=== PATIENT | female | born 1980 | race Caucasian/White ===

== ENCOUNTER → 2019-06-17 10:31 | Outpatient (BNVA) | payer MEDICAID, SELFPAY | PROVIDERS: Family Provider Family Medicine; PCP Family Medicine; Visit Provider Social Worker Clinical | DX: F43.12 Post-traumatic stress disorder, chronic (principal) | CPT/HCPCS: 90834 ==

== ENCOUNTER → 2019-08-17 10:47 | Outpatient (BNVA) | payer MEDICAID, SELFPAY | PROVIDERS: Family Provider Family Medicine; PCP Family Medicine; Visit Provider Social Worker Clinical | DX: F43.12 Post-traumatic stress disorder, chronic (principal) | CPT/HCPCS: 90834 ==

== ENCOUNTER → 2020-01-07 07:54 | Outpatient (BNVA) | payer MEDICARE, MEDICAID, SELFPAY | PROVIDERS: Family Provider Family Medicine; PCP Family Medicine; Visit Provider Social Worker Clinical | DX: F43.12 Post-traumatic stress disorder, chronic (principal) | CPT/HCPCS: 90834 ==

== ENCOUNTER 2020-01-15 10:31 | Emergency (ER) | payer MEDICARE, MEDICAID, SELFPAY ==
[2020-01-15 10:39] VITALS: BMI 20.1
[2020-01-15 10:44] VITALS: BP 158/113; PULSE 112; RESP 20; TEMP 37.2; O2SAT 97
--- NOTE | 2020-01-15 10:49 | W.ED.EXTPRO ---
HPI - Extremity Problem General: Chief complaint: Extremity Problem,Nontraumatic Stated complaint: swelling/redness multiple areas post fall Time Seen by Provider: 01/15/20 10:39 History of Present Illness: HPI Narrative: 39-year-old femal presents emergency room with complaint of pain to her feet bilaterally. She has sunburn meyer on the dorsum of her feet that are limited to the dorsum of the feet she has a little bit of swelling on the left foot she did evidently injured it previously and was in a walking boot and physical therapy for some time she states is being to hurt again although she does not recall any specific trauma that she had. Patient is tearful in the exam room. There is no drainage or obvious abscess. Skin is erythematous across the dorsum of the foot but does not extend posteriorly. It stops at the line of the malleoli. MD Complaint: extremity pain and extremity swelling Onset (ago): day(s) Pain Consistency: constant Location: left, right and lower extremity (Feet bilaterally) Quality: aching Radiation: none Relieving factors: nothing Exacerbating factors: nothing Associated symptoms: Reports no associated symptoms; Deny chest pain, fever(s) or rash Review of Systems Const: Denies: fever(s), chills, body aches, change in appetite, fatigue or malaise ENMT: Denies: throat pain, ear or mastoid pain, nasal discharge or nasal congestion Card: Denies: chest pain, edema, dyspnea on exertion or orthopnea Resp: Denies: dyspnea, productive cough or non-productive cough GI: Denies: abdominal pain, nausea, vomiting, hematemesis, coffee ground emesis, diarrhea, constipation, bloating, hematochezia or melena : Denies: flank pain, difficulty voiding, dysuria, urinary frequency or urinary urgency Skin/Breast: Denies: rash or pruritus PFSH ED PFSH: Medical History (Updated 01/15/20 @ 12:34 by Juni Kaur DO) Anxiety Depression Dystonia Fibromyalgia PTSD (post-traumatic stress disorder) Surgical History (Updated 01/15/20 @ 10:54 by Juni Kaur DO) History of cholecystectomy History of hysterectomy Physical Exam Const: COMMON NORMALS: average body habitus, patient oriented x3 and alert GENERAL APPEARANCE: cooperative, comfortable, well kempt and well developed NUTRITIONAL APPEARANCE: obese ORIENTATION/CONSCIOUSNESS: Yes awake, Yes oriented to person and Yes oriented to place HENMT: COMMON NORMALS: normocephalic and atraumatic HEAD & SCALP: normocephalic and atraumatic Eye: COMMON NORMALS: Equal, round and reactive pupils present, EOMs intact bilaterally, conjunctivae normal and no scleral icterus CONJUNCTIVA: Yes conjunctivae normal PUPIL: Yes Equal, round and reactive pupils present Neck/C-Spine: COMMON NORMALS: full ROM, no lymphadenopathy, supple, no meningeal signs and Thyroid normal THYROID: Thyroid normal and asymmetrical Lymph: LYMPHATIC: no lymphadenopathy noted Resp: COMMON NORMALS: normal respiratory effort, No retractions, No use of accessory muscles and clear to auscultation bilaterally AUSCULTATION: clear to auscultation bilaterally Cardio: COMMON NORMALS: regular rate and regular rhythm RATE: regular rate RHYTHM: regular rhythm HEART SOUNDS: no murmurs GI: COMMON NORMALS: Normal to inspection, nondistended, normoactive bowel sounds present, Soft to palpation and No hepatosplenomegaly present PALPATION: Yes Soft to palpation and Yes No hepatosplenomegaly present : COMMON NORMALS: Yes no CVA tenderness BLADDER/KIDNEY EXAM: Yes no CVA tenderness Back/Pelvis: COMMON NORMALS: no CVA tenderness LUMBAR SPINE/LOWER BACK: Yes normal to inspection Extremity: NARRATIVE EXTREMITY EXAM: Moderate swelling of the dorsum of the feet bilaterally right greater than left there is erythema noted in a pattern consistent with a sunburn where there are spared areas from sandal markings she was wearing. The erythema stops at the level of the malleoli bilaterally there is no spread posteriorly oral to the lateral portion of the foot there is no posterior popliteal or or inguinal lymphadenopathy noted. Dopar dorsalis pedis pulses and posterior tibialis pulse are palpable normally. There is no drainage no abscess. There is a slightly blanched area in the middle of the dorsum of the foot overlying the proximal portion of the third meta tarsal but there is no eschar present there is no palpable abscess. Neuro: COMMON NORMALS: patient oriented x3 SENSORIUM/ORIENTATION: Yes alert, Yes oriented to person and Yes oriented to place MENINGEAL SIGNS: Yes no meningeal signs Psych: APPEARANCE: Yes well kempt Skin: COMMON NORMALS: no rashes or lesions noted and turgor normal GENERAL SKIN EXAM: no rashes or lesions noted and turgor normal Course Vital Signs: Vital signs: Vital Signs Temperature 99.0 F 01/15/20 10:44 Pulse Rate 103 H 01/15/20 11:53 Respiratory Rate 18 01/15/20 11:53 Blood Pressure 129/94 01/15/20 11:53 Pulse Oximetry 99 01/15/20 11:53 MDM - Extremity (Nontraumatic) MDM Narrative: Medical decision making narrative: White count and CRP are normal x-rays does not show any acute fracture. No believe there is any cellulitis the erythema is limited to the exposed areas even the sandal straps are not erythematous although they are somewhat swollen was, generalized swelling on lower extremities particularly on the left. Observe for now. Elevate feet can apply ice use previously prescribed pain medications along with ibuprofen for relief. Follow-up with primary care doctor if not improving Lab Data: Labs: Lab Results 01/15/20 01/15/20 Range/Units 11:32 11:32 WBC 7.7 (4.0-10.0) 10^3/ uL RBC 3.73 L (4.1-5.3) 10^6/u L Hgb 11.9 (11.5-15.3) g/dL Hct 36.5 L (37.0-47.0) % MCV 97.9 (81-99) fL MCH 31.9 (28.0-34.0) pg MCHC 32.6 (30.0-36.0) g/dL RDW 13.1 (12.1-15.1) % Plt Count 267 (130-400) 10^3/c mm MPV 9.4 (7.4-10.4) fL Neut % (Auto) 64.4 % Lymph % (Auto) 27.7 % [place] % (Auto) 6.8 % Eos % (Auto) 0.4 % Baso % (Auto) 0.4 % Neut # (Auto) 4.96 (1.8-7.7) 10^3/u L Lymph # (Auto) 2.1 (0.8-4.8) 10^3/u L [place] # (Auto) 0.5 (0.2-0.9) 10^3/u L Eos # (Auto) 0.0 (0.0-0.8) 10^3/u L Baso # (Auto) 0.0 (0.0-0.1) 10^3/u L Nucleated RBC % (a uto) 0 % Nucleated RBCs # 0.0 /100WBC Sodium 140 (136-145) mmol/L Potassium 3.3 L (3.5-5.1) mmol/L Chloride 107 (98-107) mmol/L Carbon Dioxide 26 (22-29) mmol/L Anion Gap 10.3 (5-19) BUN 4 L (6-20) mg/dL Creatinine 0.6 (0.5-0.9) mg/dL GFR Calculation 110.7 (90-130) mL/min Glucose 72 (65-115) mg/dL Calculated Osmolal ity 284 L (285-295) mOsm/k g Calcium 8.3 L (8.5-10.5) mg/dL Total Bilirubin 0.2 (0.15-1.2) mg/dL AST 10 (0-32) U/L ALT < 5 (0-33) U/L Alkaline Phosphata se 57 (35-105) IU/L C-Reactive Protein 1.9 (0.0-4.9) mg/L Total Protein 6.7 (6.6-8.7) g/dL Albumin 3.9 (3.5-5.2) g/dL Globulin 2.8 (1.3-4.6) g/dL Discharge Plan Discharge Patient Disposition: Home Clinical Impression: First degree sunburn, Lower extremity edema Condition: Stable Prescriptions: No Action cyclobenzaprine 10 mg tablet 10 mg PO PRN PRN (Reason: muscle spasms) RF: 0 citalopram 40 mg tablet 40 mg PO DAILY RF: 0 ibuprofen 800 mg tablet 800 mg PO DAILY RF: 0 ondansetron HCl 4 mg tablet 4 mg PO DAILY RF: 0 tramadol 50 mg tablet 50 mg PO PRN PRN (Reason: Pain) RF: 0 oxycodone-acetaminophen 5-325 mg tablet 1 tab PO Q4H PRN (Reason: Pain) RF: 0 estradiol 1 mg tablet 1 mg PO DAILY RF: 0 omeprazole 20 mg capsule,delayed release(DR/EC) 20 mg PO DAILY RF: 0 morphine 15 mg tablet extended release 15 mg PO DAILY RF: 0 diazepam 5 mg tablet 5 mg PO TID RF: 0 Discharge Orders: Discharge Order (Routine); Ordered 01/15/20 Ordered By: Juni Kaur Referrals: Divya Newton, [Primary Care Provider] - Discharge Diet: Usual diet Discharge Activity: Increase activity as tolerated Activity Restrictions/Additional Instructions: Elevate can apply ice use previously prescribed pain medications along with ibuprofen follow-up with primary care if not improving Coding Level of Care Code ED Potato [employer] Maker for Edwinag Fwd Exam Comprehensive
--- NOTE | 2020-01-15 10:55 | XRR_ITS ---
PROCEDURE INFORMATION: Exam: XR Left Ankle Exam date and time: 01/15/2020 10:57 AM Age: 39 years old Clinical indication: Pain; Ankle; Left; Additional info: Pain with swallowing TECHNIQUE: Imaging protocol: XR Left ankle. Views: 3 or more views. COMPARISON: No relevant prior studies available. FINDINGS: Bones/joints: No acute fracture. No dislocation. Soft tissues: Minimal soft tissue edema noted about the ankle, left slightly greater than right. XR/XR ankle LT min 3V* [id number] IMPRESSION: No acute fracture. Minimal soft tissue edema noted about the ankle, left slightly greater than right.
[2020-01-15 11:50] LABS: Basophils % 0.4 %; Eosinophils % 0.4 %; Hematocrit 36.5 % (37.0-47.0); Hemoglobin 11.9 g/dL (11.5-15.3); Lymphocytes # 2.1 10^3/uL (0.8-4.8); Lymphocytes % 27.7 %; Mean Corpuscular HGB Conc 32.6 g/dL (30.0-36.0); Mean Corpuscular Hemoglobin 31.9 pg (28.0-34.0); Mean Corpuscular Volume 97.9 fL (81-99); Mean Platelet Volume 9.4 fL (7.4-10.4); Monocytes # 0.5 10^3/uL (0.2-0.9); Monocytes % 6.8 %; Neutrophils # 4.96 10^3/uL (1.8-7.7); Neutrophils % 64.4 %; Nucleated Red Blood Cells % 0 %; Platelet Count 267 10^3/cmm (130-400); Red Blood Count 3.73 10^6/uL (4.1-5.3); Red Cell Distribution Width 13.1 % (12.1-15.1); White Blood Count 7.7 10^3/uL (4.0-10.0)
[2020-01-15] MEDS: HYDROcodone-acetaminophen 5-325 mg Tablet 1 TAB PO (11:52)
[2020-01-15 11:53] VITALS: BP 129/94; PULSE 103; RESP 18; O2SAT 99
[2020-01-15 12:11] LABS: Alanine Aminotransferase < 5 U/L (0-33); Albumin Level 3.9 g/dL (3.5-5.2); Alkaline Phosphatase 57 IU/L (35-105); Anion Gap 10.3 (5-19); Aspartate Amino Transferase 10 U/L (0-32); Blood Urea Nitrogen 4 mg/dL (6-20); C Reactive Protein 1.9 mg/L (0.0-4.9); Calcium 8.3 mg/dL (8.5-10.5); Carbon Dioxide 26 mmol/L (22-29); Chloride 107 mmol/L (98-107); Globulin 2.8 g/dL (1.3-4.6); Glomerular Filtration Rate 110.7 mL/min (90-130); Glucose 72 mg/dL (65-115); Osmolality Calculated 284 mOsm/kg (285-295); Potassium 3.3 mmol/L (3.5-5.1); Sodium 140 mmol/L (136-145); Total Bilirubin 0.2 mg/dL (0.15-1.2); Total Protein 6.7 g/dL (6.6-8.7)
[2020-01-15] MEDS: potassium chloride oral liq 20 mEq/15 mL UDC 40 MEQ PO (12:38)
[2020-01-15 12:39] LABS: Erythrocyte Sedimentation Rate 13 mm/hr (0-15)
[2020-01-15 12:40] VITALS: BP 103/68; PULSE 85; RESP 16; O2SAT 100
== END 2020-01-15 12:46 | disposition home or self-care (01) ==
PROVIDERS: Emergency Provider Family Medicine; PCP Family Medicine
DX: L55.0 Sunburn of first degree (principal); R60.0 Localized edema
CPT/HCPCS: 12345; 36415; 73610; 80053; 85025; 85651; 86140; 87040; 99281; 99283

== ENCOUNTER → 2020-01-19 09:40 | Outpatient (BNVA) | payer MEDICARE, MEDICAID, SELFPAY | PROVIDERS: Family Provider Family Medicine; PCP Family Medicine; Visit Provider Social Worker Clinical | DX: F43.12 Post-traumatic stress disorder, chronic (principal) | CPT/HCPCS: 90834 ==

== ENCOUNTER → 2020-02-03 08:47 | Outpatient (BNVA) | payer MEDICARE, MEDICAID, SELFPAY | PROVIDERS: Family Provider Family Medicine; PCP Family Medicine; Visit Provider Social Worker Clinical | DX: F43.12 Post-traumatic stress disorder, chronic (principal) | CPT/HCPCS: 90834 ==

== ENCOUNTER → 2020-02-08 08:42 | Outpatient (BNVA) | payer MEDICARE, MEDICAID, SELFPAY | PROVIDERS: Family Provider Family Medicine; PCP Family Medicine; Visit Provider Social Worker Clinical | DX: F43.12 Post-traumatic stress disorder, chronic (principal) | CPT/HCPCS: 90834 ==

== ENCOUNTER → 2020-02-28 09:29 | Outpatient (BNVA) | payer MEDICARE, MEDICAID, SELFPAY | PROVIDERS: Family Provider Family Medicine; PCP Family Medicine; Visit Provider Social Worker Clinical | DX: F43.12 Post-traumatic stress disorder, chronic (principal) | CPT/HCPCS: 90834 ==

== ENCOUNTER 2020-11-24 14:49 | Inpatient (IN) | payer MEDICARE, MEDICAID, SELFPAY ==
[2020-11-24 15:05] VITALS: BP 152/84; PULSE 110; RESP 18; O2SAT 95; BMI 15.1
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
[2020-11-24 17:27] LABS: Basophils # 0.1 10^3/uL (0.0-0.1); Basophils % 0.7 %; Eosinophils # 0.1 10^3/uL (0.0-0.8); Eosinophils % 1.5 %; Hematocrit 36.3 % (37.0-47.0); Hemoglobin 11.8 g/dL (11.5-15.3); Lymphocytes # 2.3 10^3/uL (0.8-4.8); Lymphocytes % 33.5 %; Mean Corpuscular HGB Conc 32.5 g/dL (30.0-36.0); Mean Corpuscular Hemoglobin 31.6 pg (28.0-34.0); Mean Corpuscular Volume 97.1 fL (81-99); Mean Platelet Volume 9.6 fL (7.4-10.4); Monocytes # 0.5 10^3/uL (0.2-0.9); Neutrophils # 3.79 10^3/uL (1.8-7.7); Nucleated Red Blood Cells % 0 %; Platelet Count 259 10^3/cmm (130-400); Red Blood Count 3.74 10^6/uL (4.1-5.3); Red Cell Distribution Width 12.3 % (12.1-15.1); White Blood Count 6.8 10^3/uL (4.0-10.0)
[2020-11-24 17:51] LABS: Alanine Aminotransferase 11 U/L (0-33); Albumin Level 3.8 g/dL (3.5-5.2); Alkaline Phosphatase 52 IU/L (35-105); Anion Gap 13.8 (5-19); Aspartate Amino Transferase 16 U/L (0-32); Blood Urea Nitrogen 8 mg/dL (6-20); Calcium 8.8 mg/dL (8.5-10.5); Carbon Dioxide 30 mmol/L (22-29); Chloride 98 mmol/L (98-107); Globulin 2.3 g/dL (1.3-4.6); Glomerular Filtration Rate 92.2 mL/min (90-130); Glucose 81 mg/dL (65-115); Osmolality Calculated 285 mOsm/kg (285-295); Salicylate 2.9 mg/dL (3-10); Sodium 139 mmol/L (136-145); Total Bilirubin 0.3 mg/dL (0.15-1.2); Total Protein 6.1 g/dL (6.6-8.7)
[2020-11-24 17:53] LABS: Potassium 2.8 mmol/L (3.5-5.1)
[2020-11-24 17:54] LABS: Acetaminophen < 5.0 ug/mL (10-30); Alcohol Level < 10 mg/dL (0-10)
[2020-11-24 17:55] LABS: Glucose Urine UA Norm (Normal); HCG Qualitative Urine. Negative (Negative); Protein Urine 1+ (Negative); Specific Gravity, Urine 1.025 (1.005-1.030); Urine Appearance Cloudy (CLEAR); Urine Color Yellow (Yellow); pH Urine 7 (5-7)
[2020-11-24 17:56] LABS: Add Urine Microscopic? YES; Bilirubin Urine 1+ (Negative); Blood Urine Neg (Negative); Ketones Urine Negative (Negative); Leukocyte Esterase Urine Trace (Negative); Nitrate Urine Positive (Negative); Urobilinogen Urine 1 mg/dL (Negative)
[2020-11-24 18:06] LABS: Bacteria Urine 4+ /hpf; Squamous Epithelial Cell Urine 0-4 /hpf (0-5); WBC Urine 0-4 /hpf (0-5)
[2020-11-24 18:07] LABS: Add Urine Culture? No
[2020-11-24 18:10] LABS: Amphetamines Screen Urine Positive (Negative); Barbiturates Screen Urine Negative (Negative); Benzodiazepines Screen Urine Positive (Negative); Cocaine Screen Urine Negative (Negative); Opiate Screen Urine Negative (Negative); PCP Screen Urine Negative (Negative); THC Screen Urine Negative (Negative)
[2020-11-24] MEDS: nitrofurantoin SR (BID) 100 mg Capsule PO (18:14)
[2020-11-24] MEDS: potassium chloride oral liq 20 mEq/15 mL UDC 40 MEQ PO (18:14)
[2020-11-24] MEDS: LORazepam 1 mg Tablet PO (18:14)
[2020-11-24 18:17] VITALS: BP 121/75; PULSE 89; RESP 18; O2SAT 97
--- NOTE | 2020-11-24 19:37 | PC.NURSE ---
patient is resting, no acute distress noted.
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
[2020-11-24 22:00] VITALS: BP 121/75; PULSE 89; RESP 18; TEMP 37; O2SAT 98
[2020-11-25 06:00] VITALS: BP 107/74; PULSE 73; RESP 17; TEMP 36.6; O2SAT 97
[2020-11-25 08:04] LABS: Eosinophils # 0.1 10^3/uL (0.0-0.8); Eosinophils % 2.7 %; Hematocrit 35.7 % (37.0-47.0); Hemoglobin 11.5 g/dL (11.5-15.3); Lymphocytes % 48.2 %; Mean Corpuscular HGB Conc 32.2 g/dL (30.0-36.0); Mean Corpuscular Hemoglobin 31.1 pg (28.0-34.0); Mean Corpuscular Volume 96.5 fL (81-99); Mean Platelet Volume 9.9 fL (7.4-10.4); Monocytes # 0.4 10^3/uL (0.2-0.9); Monocytes % 10.3 %; Neutrophils # 1.54 10^3/uL (1.8-7.7); Neutrophils % 37.8 %; Nucleated Red Blood Cells % 0 %; Platelet Count 245 10^3/cmm (130-400); Red Cell Distribution Width 12.4 % (12.1-15.1); White Blood Count 4.1 10^3/uL (4.0-10.0)
[2020-11-25 08:23] LABS: Alanine Aminotransferase 10 U/L (0-33); Albumin Level 3.5 g/dL (3.5-5.2); Alkaline Phosphatase 49 IU/L (35-105); Anion Gap 12.4 (5-19); Aspartate Amino Transferase 14 U/L (0-32); Blood Urea Nitrogen 10 mg/dL (6-20); Carbon Dioxide 30 mmol/L (22-29); Chloride 105 mmol/L (98-107); Glomerular Filtration Rate 92.2 mL/min (90-130); Glucose 87 mg/dL (65-115); Osmolality Calculated 296 mOsm/kg (285-295); Potassium 3.4 mmol/L (3.5-5.1); Sodium 144 mmol/L (136-145); Total Bilirubin 0.4 mg/dL (0.15-1.2); Total Protein 5.5 g/dL (6.6-8.7)
[2020-11-25] MEDS: diazePAM 5 mg Tablet PO ×4 (10:00→20:53)
[2020-11-25] MEDS: nitrofurantoin SR (BID) 100 mg Capsule PO ×2 (10:00→18:36)
[2020-11-25] MEDS: citalopram 20 mg Tablet 40 MG PO (10:00)
[2020-11-25] MEDS: estradiol 1 mg Tablet 1.5 MG PO (10:01)
[2020-11-25] MEDS: pantoprazole DR 40 mg Tablet PO (10:01)
[2020-11-25] MEDS: potassium chloride oral liq 20 mEq/15 mL UDC 40 MEQ PO ×2 (10:02→18:36)
[2020-11-25 10:13] VITALS: RESP 18; O2SAT 97
[2020-11-25] MEDS: oxyCODONE-APAP 5-325 mg Tablet 1 TAB PO (10:13)
[2020-11-25 11:42] VITALS: BMI 15.1
[2020-11-25] MEDS: OLANZapine 5 mg ODT PO ×2 (12:51→18:35)
[2020-11-25] MEDS: nicotine 21 mg Patch 1 PATCH TRANSDERMA (12:51)
[2020-11-25 14:00] VITALS: BP 107/74; PULSE 73; RESP 18; TEMP 36.6; O2SAT 97
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
--- NOTE | 2020-11-25 19:06 | PC.NURSE ---
late entry prn 1013 administered oxycodone 5mg/325mg for pt c/o pain 01/16. will continue to monitor pt until end of shift.
[2020-11-25 22:00] VITALS: BP 106/72; PULSE 70; RESP 16; TEMP 36.8; O2SAT 96
--- NOTE | 2020-11-26 02:41 | PC.NURSE ---
MEDICAL BED? PT HAS STATED, MY BODY ACHES, I HAVE A GENETIC CONDITION AND FIBROMYALGIA. AT TIMES, I CAN NOT GET UP OUT OF BED ON MY OWN, IT HURTS TO WALK, AND SOMETIMES I FALL. PT HAS A FALL MAT IN PLACE, FALL RISK UPDATED, FALL BRACELET ON PT. PT MAY BENEFIT FROM MOVEMENT INTO A MEDICAL BED NEAR NURSES STATION.
[2020-11-26 06:00] VITALS: BP 110/62; PULSE 77; RESP 16; TEMP 36.7; O2SAT 99; BMI 15.1
[2020-11-26] MEDS: acetaminophen 325 mg Tablet 650 MG PO (06:11)
[2020-11-26] MEDS: estradiol 1 mg Tablet 1.5 MG PO (08:38)
[2020-11-26] MEDS: pantoprazole DR 40 mg Tablet PO (08:39)
[2020-11-26] MEDS: diazePAM 5 mg Tablet PO ×4 (08:39→20:36)
[2020-11-26] MEDS: citalopram 20 mg Tablet 40 MG PO (08:39)
[2020-11-26] MEDS: nitrofurantoin SR (BID) 100 mg Capsule PO ×2 (08:39→20:36)
[2020-11-26 13:56] VITALS: BP 97/67; PULSE 101; RESP 16; TEMP 36.9; O2SAT 97
--- NOTE | 2020-11-26 15:08 | PM.NPN ---
Subjective NPU Subjective: Interval history: Reina presented today seeming to realize that she is having perceptual disturbances. She reports hearing knocking on doors and windows here in the hospital. We discussed the risks benefits and alternatives of starting abilify for her psychosis and she understood and agreed to proceed as is documented in this note. Mental Status Exam MSE Comments: This is an underweight white female in hospital scrubs with appropriate grooming and adequate eye contact. No abnormal movements except for psychomotor retardation. Cooperative with exam in mild to moderate distress. Speech was decreased rate and volume. Mood described as not good, affect congruent. Thought process organized. Thought content: Patient denied suicidal or homicidal ideation, there were no delusions reported but some paranoia existed, she endorsed hearing sounds that are starting to drive me crazy. . Attention and concentration were intact and memory was mostly reliable but none were formally tested. She is alert and oriented x3. Insight and judgment are improving. And impulse control is impaired. Vitals/I&O/Wt Last Vital Signs Temp 98.4 F 11/26/20 13:56 Pulse 101 H 11/26/20 13:56 Resp 16 11/26/20 13:56 BP 97/67 11/26/20 13:56 Pulse Ox 97 11/26/20 13:56 Weight last 48 hrs Weight 37.648 kg Weight 37.648 kg Data NPU : 11/25/20 07:02 11/25/20 07:02 A&P Additional A&P Information (1) Acute psychosis: (2) Drug-induced psychotic disorder: (3) Cannabis abuse: (4) Methamphetamine abuse: (5) PTSD (post-traumatic stress disorder): Additional A&P Information This is a 40-year-old white female with a long history of trauma and recent active addiction with possible ultimate status secondary to use who presents feeling distressed about being stalked by her but is unclear that that is actually occurring. 1. Continue current medication. Start abilify 10 mg po qam. 2. Continue every 15 minute checks for safety. 3. Encourage individual, group and milieu therapies. 4. Encourage sober living treatment after discharge at the highest level of care to which he is willing to commit. Involuntary Hold Information 96 Hour Hold: 96 Hour Involuntary Admission: No Attestations NPU Medical Necessity Statement*: Inpatient hospitalization is medically necessary and the clinically appropriate intervention at this time. We will monitor medications and make changes as indicated. Likely length of stay 2-4 days. Coding Level of Care Code Acute Jd Edwards Consultant for Elyssa Charles
[2020-11-26] MEDS: ARIPiprazole 10 mg Tablet PO (15:50)
[2020-11-26 20:59] VITALS: BP 115/70; PULSE 98; RESP 19; TEMP 36.8; O2SAT 99
[2020-11-27 06:00] VITALS: BP 113/79; PULSE 81; RESP 17; TEMP 36.9; O2SAT 98
[2020-11-27] MEDS: ARIPiprazole 10 mg Tablet PO (08:38)
[2020-11-27] MEDS: citalopram 20 mg Tablet 40 MG PO (08:38)
[2020-11-27] MEDS: diazePAM 5 mg Tablet PO ×4 (08:39→20:47)
[2020-11-27] MEDS: nitrofurantoin SR (BID) 100 mg Capsule PO ×2 (08:39→20:47)
[2020-11-27] MEDS: pantoprazole DR 40 mg Tablet PO (08:39)
[2020-11-27] MEDS: estradiol 1 mg Tablet 1.5 MG PO (08:40)
[2020-11-27 09:14] VITALS: RESP 17; O2SAT 96
[2020-11-27] MEDS: oxyCODONE-APAP 5-325 mg Tablet 1 TAB PO ×2 (09:14→16:22)
[2020-11-27 14:00] VITALS: BP 95/63; PULSE 88; RESP 14; TEMP 36.9; O2SAT 98
[2020-11-27 16:22] VITALS: RESP 17
--- NOTE | 2020-11-27 16:32 | PM.NPN ---
Subjective NPU Subjective: Interval history: Reina presents today reporting that she is finally starting to see a light in the time. She had a couple visitors who also said it was starting to see a little improvement. She feels like the medication is helping diminish the perceptual disturbances that she has been reporting. She is more open to speak about possible impact of her drug use. Otherwise she reports she is a bit tired but is unclear if this related to medication or the events in the last few days. Mental Status Exam MSE Comments: This is an underweight white female in hospital scrubs with appropriate grooming and adequate eye contact. No abnormal movements except for psychomotor retardation. Cooperative with exam in no acute distress. Speech was decreased rate and volume. Mood described as a little better, affect congruent. Thought process organized. Thought content: Patient denied suicidal or homicidal ideation, there were no delusions reported and resolving paranoia, she endorsed the sound she had been hearing are diminishing. Attention and concentration were intact and memory was mostly reliable but none were formally tested. She is alert and oriented x3. Insight and judgment are improving. And impulse control is limited, but improving. Vitals/I&O/Wt Last Vital Signs Temp 98.4 F 11/27/20 14:00 Pulse 88 11/27/20 14:00 Resp 18 11/27/20 14:00 BP 95/63 11/27/20 14:00 Pulse Ox 98 11/27/20 14:00 Data NPU : 11/25/20 07:02 11/25/20 07:02 A&P Additional A&P Information (1) Acute psychosis: (2) Drug-induced psychotic disorder: (3) Cannabis abuse: (4) Methamphetamine abuse: (5) PTSD (post-traumatic stress disorder): Additional A&P Information This is a 40-year-old white female with a long history of trauma and recent active addiction with possible ultimate status secondary to use who presents feeling distressed about being stalked by her but is unclear that that is actually occurring. 1. Continue current medication. 2. Continue every 15 minute checks for safety. 3. Encourage individual, group and milieu therapies. 4. Encourage sober living treatment after discharge at the highest level of care to which he is willing to commit. Involuntary Hold Information 96 Hour Hold: 96 Hour Involuntary Admission: No Attestations NPU Medical Necessity Statement*: Inpatient hospitalization is medically necessary and the clinically appropriate intervention at this time. We will monitor medications and make changes as indicated. Likely length of stay 1-3 days. Coding Level of Care Code Acute Customer Resolution Specialist for Elyssa Charles
[2020-11-27 20:12] VITALS: BP 96/66; PULSE 83; RESP 15; TEMP 36.6; O2SAT 97
--- NOTE | 2020-11-27 20:15 | PC.NURSE ---
REFUSED SHOWER PT OFFERED SHOWER ON CSU WITH AID, PT REFUSED. ROLLED OVER, WENT TO SLEEP
[2020-11-28 06:00] VITALS: BP 87/61; PULSE 88; RESP 14; TEMP 35.9; O2SAT 97
[2020-11-28] MEDS: nitrofurantoin SR (BID) 100 mg Capsule PO ×2 (06:39→21:41)
[2020-11-28 08:10] VITALS: RESP 17
[2020-11-28] MEDS: ARIPiprazole 10 mg Tablet PO (08:10)
[2020-11-28] MEDS: diazePAM 5 mg Tablet PO ×4 (08:10→21:41)
[2020-11-28] MEDS: pantoprazole DR 40 mg Tablet PO (08:10)
[2020-11-28] MEDS: oxyCODONE-APAP 5-325 mg Tablet 1 TAB PO ×3 (08:10→19:35)
[2020-11-28] MEDS: citalopram 20 mg Tablet 40 MG PO (08:11)
[2020-11-28] MEDS: estradiol 1 mg Tablet 1.5 MG PO (08:11)
--- NOTE | 2020-11-28 08:58 | DCPLANNER ---
IMM not completed due to pt in NPU
--- NOTE | 2020-11-28 09:11 | PC.NURSE ---
off the floor to shower on CSU, accompanied by nurse residents
--- NOTE | 2020-11-28 09:18 | PC.NUTR ---
Addendum entered by Anders Hull 11/28/20 09:24: chocolate Ensure Plus Original Note: Nutrition reassessment: Clarified supplement provision as pt states she has not received it yet. Pt to receive Ensure with lunch. Dietary staff aware. See RD assessment for further details.
[2020-11-28 13:44] VITALS: RESP 17
[2020-11-28 14:00] VITALS: BP 106/68; PULSE 87; RESP 14; TEMP 36.7; O2SAT 97
--- NOTE | 2020-11-28 15:06 | PM.NPN ---
Subjective NPU Subjective: Interval history: Reina presents today continue to have slow progress and showing more clarity of thought but still have some psychomotor retardation. Family visited and we are agreeable to discharge tomorrow they are trying to get some kind of inpatient addiction treatment in place but we discussed the fact that that is often a time challenging situation and so they are working on what they are going to do to support her in the meantime. We agreed to a plan for discharge in the morning. Mental Status Exam MSE Comments: This is an underweight white female in hospital scrubs with appropriate grooming and adequate eye contact. No abnormal movements except for psychomotor retardation. Cooperative with exam in no acute distress. Speech was decreased rate and volume. Mood described as a little better, affect congruent. Thought process organized. Thought content: Patient denied suicidal or homicidal ideation, there were no delusions reported and resolving paranoia, she endorsed the sound she had been hearing are diminishing. Attention and concentration were intact and memory was mostly reliable but none were formally tested. She is alert and oriented x3. Insight and judgment are improving. And impulse control is limited, but improving. Vitals/I&O/Wt Last Vital Signs Temp 98.0 F 11/28/20 14:00 Pulse 87 11/28/20 14:00 Resp 14 11/28/20 14:00 BP 106/68 11/28/20 14:00 Pulse Ox 97 11/28/20 14:00 Data NPU : 11/25/20 07:02 11/25/20 07:02 A&P Additional A&P Information (1) Acute psychosis: (2) Drug-induced psychotic disorder: (3) Cannabis abuse: (4) Methamphetamine abuse: (5) PTSD (post-traumatic stress disorder): Additional A&P Information This is a 40-year-old white female with a long history of trauma and recent active addiction with possible ultimate status secondary to use who presents feeling distressed about being stalked by her but is unclear that that is actually occurring. 1. Continue current medication. 2. Continue every 15 minute checks for safety. 3. Encourage individual, group and milieu therapies. 4. Encourage sober living treatment after discharge at the highest level of care to which he is willing to commit. Involuntary Hold Information 96 Hour Hold: 96 Hour Involuntary Admission: No Attestations NPU Medical Necessity Statement*: Inpatient hospitalization is medically necessary and the clinically appropriate intervention at this time. We will monitor medications and make changes as indicated. Likely discharge in the morning.. Coding Level of Care Code Acute Golf Course Equipment Operator for Elyssa Charles
[2020-11-28 19:35] VITALS: RESP 16; O2SAT 97
--- NOTE | 2020-11-28 19:35 | PC.NURSE ---
pt requested pain med for all over body pain. Oxycodone-Acetaminophen 5/325 po given.
[2020-11-28 21:13] VITALS: BP 117/81; PULSE 107; RESP 24; TEMP 36.8; O2SAT 97
--- NOTE | 2020-11-28 21:45 | PC.NURSE ---
pt is resting quietly with both eyes closed.
[2020-11-29 06:00] VITALS: BP 103/71; PULSE 75; RESP 18; TEMP 36.8; O2SAT 99
[2020-11-29] MEDS: nitrofurantoin SR (BID) 100 mg Capsule PO (06:38)
[2020-11-29 09:44] VITALS: RESP 16; O2SAT 98
[2020-11-29] MEDS: oxyCODONE-APAP 5-325 mg Tablet 1 TAB PO (09:44)
[2020-11-29] MEDS: ARIPiprazole 10 mg Tablet PO (09:45)
[2020-11-29] MEDS: pantoprazole DR 40 mg Tablet PO (09:45)
[2020-11-29] MEDS: citalopram 20 mg Tablet 40 MG PO (09:45)
[2020-11-29] MEDS: estradiol 1 mg Tablet 1.5 MG PO (09:45)
--- NOTE | 2020-11-29 10:26 | PC.NURSE ---
PRN 0944 administered Oxycodone 5/325 mg for pain 01/16. Will continue to monitor pt.
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
[2020-11-29 12:41] VITALS: BP 102/70; PULSE 71; RESP 16; TEMP 36.6; O2SAT 98
== END 2020-11-29 14:11 | disposition home or self-care (01) | DRG 897 ==
LOC: ER 18:14 → NP 18:50
PROVIDERS: Admitting Provider Psychiatry & Neurology Psychiatry; Emergency Provider Family Medicine; PCP Family Medicine; Visit Provider Psychiatry & Neurology Psychiatry
DX: F15.250 Other stimulant dependence with stimulant-induced psychotic disorder with delusions (principal); N39.0 Urinary tract infection, site not specified; F41.9 Anxiety disorder, unspecified; F32.9 Major depressive disorder, single episode, unspecified; G24.9 Dystonia, unspecified; M79.7 Fibromyalgia; E87.6 Hypokalemia; F17.210 Nicotine dependence, cigarettes, uncomplicated; F12.10 Cannabis abuse, uncomplicated; Z91.410 Personal history of adult physical and sexual abuse; Z91.14 Patient's other noncompliance with medication regimen
CPT/HCPCS: 36415; 80048; 80053; 80306; 80307; 81001; 81025; 85025; 97161; 97530; 99285; J8499

== ENCOUNTER 2021-02-19 11:51 | Inpatient (IN) | payer MEDICARE, MEDICAID, SELFPAY ==
[2021-02-19 12:03] VITALS: BP 126/86; PULSE 117; RESP 16; TEMP 36.8; O2SAT 99; BMI 17.4
--- NOTE | 2021-02-19 12:36 | W.ED.GENADLT ---
HPI - General Adult General: Chief complaint: Psychiatric Symptoms Stated complaint: Hallucinations and hearing things Time Seen by Provider: 02/19/21 12:15 History of Present Illness: HPI narrative: HPI: [40]yo patient w/ hx of depression and psychosis BIBA for acutely hearing voices and cutting her R wrist yesterday night. for On arrival, the patient is AAOx3 and cooperative with my evaluation. No focal complaints of chest pain, shortness of breath, palpitations, N/V, focal GI/ complaints. +endorses visual hallucinations and SI currently. Onset: chronic, acutely x 1 day Duration: ongoing Location: home Severity: severe Review of Systems Narrative: Constitutional: No fever, no chills. HEENT: No vision changes CV: No chest pain, no palpitations PULM: No productive cough, no dyspnea. GI: No abdominal pain, no N/V/D. : No dysuria MSKEL: No muscle pain SKIN: +R arm/wrist abrasions NEURO: No headache, no focal weakness. HEME: No visible bruises PSYCH: +psychosis, + depression PFSH ED PFSH: Medical History Anxiety Depression Dystonia Fibromyalgia PTSD (post-traumatic stress disorder) Surgical History History of cholecystectomy History of hysterectomy Physical Exam Narrative: EXAM NARRATIVE: Head: Atraumatic Eyes: PERRL, conjunctiva without injection, eyes tracking ENT: Mucous membrane moist NECK: Supple without lymphadenopathy LUNGS: LCTAB CV: RRR ABDOMEN: Soft, nontender EXTREMITY: Normal ROM, +R wrist abrasions, neurovascular exam of the RUE intact SKIN: +R wrist abrasion NEURO: Awake and alert. No focal weakness PSYCH: +flat affect Course Vital Signs: Vital signs: Vital Signs Temperature 98.3 F 02/20/21 06:00 Pulse Rate 83 02/20/21 06:00 Respiratory Rate 18 02/20/21 06:00 Blood Pressure 101/68 02/20/21 06:00 Pulse Oximetry 97 02/20/21 06:00 MDM - General Adult MDM Narrative: Medical decision making narrative: [40]yo patient w/ hx of suicidal ideations and psychosis presenting for acute visual hallucinations, hearing voices, and cutting her wrist. HDS, exam within normal limit. Wrist abrasion does not need suture repair. Clinically the patient displays no overt toxidrome; they are well appearing, with low suspicion for toxic ingestion given history and exam. Symptoms unlikely 2/2 anemia, hypothyroidism, infection, or ICH. Workup: CBC, CMP, Lipase, salicylate/tylenol Lab findings: wnl [1:34pm] On reassessment, labs and workup wnl. Patient is hemodynamically stable with no acute medical complaints. Case discussed with psychiatric provider Dr. Melchor at [facility] psych inpatient with recommendation for admission Disposition: Psych Lab Data: Labs: Lab Results 02/19/21 02/19/21 02/19/21 Range/Units 12:56 12:56 12:56 WBC 8.4 (4.0-10.0) 10^3/ uL RBC 4.07 L (4.1-5.3) 10^6/u L Hgb 12.6 (11.5-15.3) g/dL Hct 37.7 (37.0-47.0) % MCV 92.6 (81-99) fl MCH 31.0 (28.0-34.0) pg MCHC 33.4 (30.0-36.0) g/dL RDW 11.9 L (12.1-15.1) % Plt Count 295 (130-400) 10^3/c mm MPV 9.1 (7.4-10.4) fL Neut % (Auto) 66.5 % Lymph % (Auto) 24.3 % [place] % (Auto) 6.0 % Eos % (Auto) 2.3 % Baso % (Auto) 0.8 % Neut # (Auto) 5.59 (1.8-7.7) 10^3/u L Lymph # (Auto) 2.0 (0.8-4.8) 10^3/u L [place] # (Auto) 0.5 (0.2-0.9) 10^3/u L Eos # (Auto) 0.2 (0.0-0.8) 10^3/u L Baso # (Auto) 0.1 (0.0-0.1) 10^3/u L Nucleated RBC % (a uto) 0 % Nucleated RBCs # 0.0 /100WBC Sodium 137 (136-145) mmol/L Potassium 3.9 (3.5-5.1) mmol/L Chloride 97 L (98-107) mmol/L Carbon Dioxide 28 (22-29) mmol/L Anion Gap 15.9 (5-19) BUN 7 (6-20) mg/dL Creatinine 0.7 (0.5-0.9) mg/dL GFR Calculation 92.2 (90-130) mL/min Glucose 51 L (65-115) mg/dL Calculated Osmolal ity 279 L (285-295) mOsm/k g Calcium 9.3 (8.5-10.5) mg/dL Urine HCG, Qual Negative (Negative) Salicylates < 0.3 L (3-10) mg/dL Urine Opiates Scre en (Negative) ng/mL Acetaminophen < 5.0 L (10-30) ug/mL Ur Barbiturates Sc reen (Negative) ng/mL Ur Phencyclidine S crn (Negative) ng/mL Ur Amphetamines Sc reen (Negative) ng/mL U Benzodiazepines Scrn (Negative) ng/mL Urine Cocaine Scre en (Negative) ng/mL U Marijuana (THC) Screen (Negative) ng/mL 02/19/21 Range/Units 13:09 WBC (4.0-10.0) 10^3/ uL RBC (4.1-5.3) 10^6/u L Hgb (11.5-15.3) g/dL Hct (37.0-47.0) % MCV (81-99) fl MCH (28.0-34.0) pg MCHC (30.0-36.0) g/dL RDW (12.1-15.1) % Plt Count (130-400) 10^3/c mm MPV (7.4-10.4) fL Neut % (Auto) % Lymph % (Auto) % [place] % (Auto) % Eos % (Auto) % Baso % (Auto) % Neut # (Auto) (1.8-7.7) 10^3/u L Lymph # (Auto) (0.8-4.8) 10^3/u L [place] # (Auto) (0.2-0.9) 10^3/u L Eos # (Auto) (0.0-0.8) 10^3/u L Baso # (Auto) (0.0-0.1) 10^3/u L Nucleated RBC % (a uto) % Nucleated RBCs # /100WBC Sodium (136-145) mmol/L Potassium (3.5-5.1) mmol/L Chloride (98-107) mmol/L Carbon Dioxide (22-29) mmol/L Anion Gap (5-19) BUN (6-20) mg/dL Creatinine (0.5-0.9) mg/dL GFR Calculation (90-130) mL/min Glucose (65-115) mg/dL Calculated Osmolal ity (285-295) mOsm/k g Calcium (8.5-10.5) mg/dL Urine HCG, Qual (Negative) Salicylates (3-10) mg/dL Urine Opiates Scre en Negative (Negative) ng/mL Acetaminophen (10-30) ug/mL Ur Barbiturates Sc reen Negative (Negative) ng/mL Ur Phencyclidine S crn Negative (Negative) ng/mL Ur Amphetamines Sc reen Positive H (Negative) ng/mL U Benzodiazepines Scrn Positive H (Negative) ng/mL Urine Cocaine Scre en Negative (Negative) ng/mL U Marijuana (THC) Screen Negative (Negative) ng/mL Discharge Plan Discharge Patient Disposition: Admitted As Inpatient Admit Provider: Chad Melchor Clinical Impression: Psychosis, Suicidal ideation Condition: Stable Coding Level of Care Code ED Device Test Engineer for Elyssa Charles
[2021-02-19 12:51] VITALS: BP 124/83; PULSE 119; RESP 16; O2SAT 98
[2021-02-19] MEDS: LORazepam 1 mg Tablet PO (13:01)
[2021-02-19 13:05] LABS: Basophils # 0.1 10^3/uL (0.0-0.1); Basophils % 0.8 %; Eosinophils # 0.2 10^3/uL (0.0-0.8); Eosinophils % 2.3 %; Hematocrit 37.7 % (37.0-47.0); Hemoglobin 12.6 g/dL (11.5-15.3); Lymphocytes % 24.3 %; Mean Corpuscular HGB Conc 33.4 g/dL (30.0-36.0); Mean Corpuscular Volume 92.6 fl (81-99); Mean Platelet Volume 9.1 fL (7.4-10.4); Monocytes # 0.5 10^3/uL (0.2-0.9); Neutrophils # 5.59 10^3/uL (1.8-7.7); Neutrophils % 66.5 %; Nucleated Red Blood Cells % 0 %; Platelet Count 295 10^3/cmm (130-400); Red Blood Count 4.07 10^6/uL (4.1-5.3); Red Cell Distribution Width 11.9 % (12.1-15.1); White Blood Count 8.4 10^3/uL (4.0-10.0)
[2021-02-19 13:29] LABS: Anion Gap 15.9 (5-19); Blood Urea Nitrogen 7 mg/dL (6-20); Calcium 9.3 mg/dL (8.5-10.5); Carbon Dioxide 28 mmol/L (22-29); Chloride 97 mmol/L (98-107); Glomerular Filtration Rate 92.2 mL/min (90-130); Glucose 51 mg/dL (65-115); Osmolality Calculated 279 mOsm/kg (285-295); Potassium 3.9 mmol/L (3.5-5.1); Sodium 137 mmol/L (136-145)
[2021-02-19 13:29] LABS: Amphetamines Screen Urine Positive (Negative); Barbiturates Screen Urine Negative (Negative); Benzodiazepines Screen Urine Positive (Negative); Cocaine Screen Urine Negative (Negative); Opiate Screen Urine Negative (Negative); PCP Screen Urine Negative (Negative); THC Screen Urine Negative (Negative)
[2021-02-19 13:30] LABS: Acetaminophen < 5.0 ug/mL (10-30); Salicylate < 0.3 mg/dL (3-10)
--- NOTE | 2021-02-19 13:31 | PC.NURSE ---
CUTTING BEHAVIOR ON PATIENT'S RIGHT WRIST NOTED AT BLOOD DRAW. NURSE CLEANED AND LEFT TO AIR DRY. PHYSICIAN NOTIFIED.
--- NOTE | 2021-02-19 13:39 | PC.NURSE ---
patient placed in a gown and moved to ER room 9 with a sitter at door.
[2021-02-19 17:24] VITALS: BP 124/83; PULSE 119; RESP 16; O2SAT 98
[2021-02-19 18:26] VITALS: BP 130/92; PULSE 109; RESP 18; TEMP 37.1; O2SAT 97
[2021-02-19 20:20] VITALS: BP 94/59; PULSE 95; RESP 23; TEMP 36.4; O2SAT 98
[2021-02-19] MEDS: hyDROXYzine 25 mg Capsule 50 MG PO (21:27)
[2021-02-20 06:00] VITALS: BP 101/68; PULSE 83; RESP 18; TEMP 36.8; O2SAT 97
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
[2021-02-20] MEDS: estradiol 1 mg Tablet 1.5 MG PO (08:42)
[2021-02-20] MEDS: citalopram 20 mg Tablet 40 MG PO (08:42)
[2021-02-20] MEDS: ibuprofen 800 mg tablet PO (08:42)
[2021-02-20] MEDS: multivitamin therapeutic Tablet 1 TAB PO (08:42)
[2021-02-20] MEDS: duloxetine 20 mg Capsule PO ×2 (08:43→17:27)
[2021-02-20] MEDS: OLANZapine 5 mg TABLET 2.5 MG PO (08:43)
[2021-02-20] MEDS: pantoprazole DR 40 mg Tablet PO (08:43)
[2021-02-20] MEDS: hyDROXYzine 25 mg Capsule 50 MG PO ×3 (08:43→21:52)
[2021-02-20 14:00] VITALS: BP 100/57; PULSE 83; RESP 16; TEMP 37.1; O2SAT 95
[2021-02-20 22:00] VITALS: BP 83/56; PULSE 81; RESP 16; TEMP 36.4; O2SAT 97
[2021-02-21 06:00] VITALS: BP 83/56; PULSE 81; RESP 16; TEMP 36.4; O2SAT 97
[2021-02-21] MEDS: OLANZapine 5 mg TABLET 7.5 MG PO (08:58)
[2021-02-21] MEDS: ibuprofen 800 mg tablet PO (08:58)
[2021-02-21] MEDS: hyDROXYzine 25 mg Capsule 50 MG PO ×3 (08:58→21:18)
[2021-02-21] MEDS: duloxetine 30 mg Capsule PO ×2 (08:58→17:50)
[2021-02-21] MEDS: pantoprazole DR 40 mg Tablet PO (08:59)
[2021-02-21] MEDS: multivitamin therapeutic Tablet 1 TAB PO (08:59)
[2021-02-21] MEDS: citalopram 20 mg Tablet 40 MG PO (08:59)
[2021-02-21] MEDS: estradiol 1 mg Tablet 1.5 MG PO (09:14)
[2021-02-21 13:49] VITALS: BP 98/62; PULSE 80; RESP 15; TEMP 36.8; O2SAT 98
--- NOTE | 2021-02-21 17:15 | PM.NPN ---
Subjective NPU Subjective: Interval history: Patient presents today reporting that she wants to go home but reporting that once she gets home she is going to go to a rehab and address the addiction issues that I brought to the front today. She had no real explanation for what was going on with her use as we discussed her psychosis likely having some connection with her ongoing methamphetamine use. She was very tearful and continued to be paranoid Mental Status Exam MSE Comments: This is an underweight white female in hospital scrubs with appropriate grooming and adequate eye contact. No abnormal movements except for psychomotor retardation. Cooperative with exam in moderate distress. Speech was decreased rate and volume. Mood described as anxious, affect congruent and tearful. Thought process organized. Thought content: Patient denied suicidal or homicidal ideation, there were no delusions reported but some paranoia existed, she endorsed auditory or visual hallucinations reporting that she thought she saw someone or hurt someone/maybe a shadow and got up during the interview and walked to the hallway to look to see where that person might have gone. Attention and concentration were intact and memory was mostly reliable but none were formally tested. She is alert and oriented x3. Insight and judgment are impaired and impulse control is impaired. Vitals/I&O/Wt Last Vital Signs Temp 98.2 F 02/21/21 20:50 Pulse 72 02/21/21 20:50 Resp 22 H 02/21/21 20:50 BP 113/75 02/21/21 20:50 Pulse Ox 100 02/21/21 20:50 Data NPU : 02/19/21 12:56 02/19/21 12:56 A&P Additional A&P Information (1) Psychosis: (2) Suicidal ideation: (3) PTSD (post-traumatic stress disorder): (4) Methamphetamine abuse: (5) Cannabis abuse: (6) Drug-induced psychotic disorder: Additional A&P Information This is a 40-year-old white female with a long history of trauma who presents with active addiction, psychosis endorsing openness to medication changes. 1. Continue current medication. 2. Continue every 15 minute checks for safety. 3. Encourage individual, group and milieu therapies. 4. Encourage sober living treatment after discharge at the highest level of care to which he is willing to commit. Involuntary Hold Information 96 Hour Hold: 96 Hour Involuntary Admission: Yes 96 Hour Hold Ending Date: 09/17/21 96 Hour Hold Ending Time: 16:30 Attestations NPU Medical Necessity Statement*: Inpatient hospitalization is medically necessary and the clinically appropriate intervention at this time. We will monitor medications and make changes as indicated. Likely length of stay 2-4 days. Coding Level of Care Code Acute Paper Testing Supervisor for Elyssa Charles
[2021-02-21 20:50] VITALS: BP 113/75; PULSE 72; RESP 22; TEMP 36.8; O2SAT 100
[2021-02-21] MEDS: trazodone 50 mg Tablet PO (21:18)
[2021-02-22 06:00] VITALS: BP 94/64; PULSE 75; RESP 16; TEMP 36.8; O2SAT 99
[2021-02-22] MEDS: OLANZapine 5 mg TABLET 7.5 MG PO (08:53)
[2021-02-22] MEDS: citalopram 20 mg Tablet 40 MG PO (08:53)
[2021-02-22] MEDS: hyDROXYzine 25 mg Capsule 50 MG PO ×3 (08:53→21:25)
[2021-02-22] MEDS: pantoprazole DR 40 mg Tablet PO (08:53)
[2021-02-22] MEDS: estradiol 1 mg Tablet 1.5 MG PO (08:53)
[2021-02-22] MEDS: duloxetine 30 mg Capsule PO ×2 (08:53→21:24)
[2021-02-22] MEDS: multivitamin therapeutic Tablet 1 TAB PO (08:53)
[2021-02-22] MEDS: ibuprofen 800 mg tablet PO (08:53)
--- NOTE | 2021-02-22 12:50 | PC.SOCIAL ---
Imm Update Discussed medicare rights with patient. Verbalized understanding. Patient asked for a new copy because her mother Klarissa had signed the original. Provided patient with a new IMM that she signed. Placed initialed, timed, dated copies in chart. Provided patient with a copy.
[2021-02-22 14:00] VITALS: BP 101/68; PULSE 67; RESP 16; TEMP 37.1; O2SAT 98
--- NOTE | 2021-02-22 17:56 | PM.NPN ---
Subjective NPU Subjective: Interval history: Patient presents today reporting that she is committed to going to rehab after discharge but continues to be very ambivalent about acknowledging that she actually has a drug problem. Whenever we have a conversation she talks about everything other than her addiction unless it is brought up by this teletypewriter operator. Eventually when challenged to actually address this anomaly she reports that her methamphetamine use is only present in the context of suicidality. Try to really challenge this position given her frequent use but it is really challenging for her to acknowledge the role addiction plays in her cycle. Reportedly she and her mother are looking at different rehab options will reach out to mom in the morning to identify where she believes Reina is compared to baseline. Mental Status Exam MSE Comments: This is an underweight white female in hospital scrubs with appropriate grooming and adequate eye contact. No abnormal movements except for psychomotor retardation. Cooperative with exam in mild but restrained distress. Speech was decreased rate and volume. Mood described as ready to go home, affect resistant and tearful. Thought process organized. Thought content: Patient denied suicidal or homicidal ideation, there were no delusions reported but some paranoia existed, she denied auditory or visual hallucinations. Attention and concentration were intact and memory was unreliable but none were formally tested. She is alert and oriented x3. Insight and judgment are impaired and impulse control is impaired. Vitals/I&O/Wt Last Vital Signs Temp 98.1 F 02/22/21 22:00 Pulse 69 02/22/21 22:00 Resp 17 02/22/21 22:00 BP 106/67 02/22/21 22:00 Pulse Ox 98 02/22/21 22:00 Data NPU : 02/19/21 12:56 02/19/21 12:56 A&P Additional A&P Information (1) Psychosis: (2) Suicidal ideation: (3) PTSD (post-traumatic stress disorder): (4) Methamphetamine abuse: (5) Cannabis abuse: (6) Drug-induced psychotic disorder: Additional A&P Information This is a 40-year-old white female with a long history of trauma who presents with active addiction, psychosis endorsing openness to medication changes. 1. Continue current medication. 2. Continue every 15 minute checks for safety. 3. Encourage individual, group and milieu therapies. 4. Encourage sober living treatment after discharge at the highest level of care to which he is willing to commit. 5. We will work with mom to see what kind of rehab options were decided. 6 likely discharge in the next 48 hours. Involuntary Hold Information 96 Hour Hold: 96 Hour Involuntary Admission: Yes 96 Hour Hold Ending Date: 02/23/21 96 Hour Hold Ending Time: 16:30 Attestations NPU Medical Necessity Statement*: Inpatient hospitalization is medically necessary and the clinically appropriate intervention at this time. We will monitor medications and make changes as indicated. Likely length of stay 1-3 days. Coding Level of Care Code Acute Petal Shaper Hand for Elyssa Charles
[2021-02-22] MEDS: trazodone 50 mg Tablet PO (21:25)
[2021-02-22 22:00] VITALS: BP 106/67; PULSE 69; RESP 17; TEMP 36.7; O2SAT 98
--- NOTE | 2021-02-22 23:38 | PC.NURSE ---
PRn 2125 Administered 50mg Trazodone for a sleeping aid. will continue to monitor.
[2021-02-23 06:00] VITALS: BP 100/68; PULSE 73; RESP 16; TEMP 36.6; O2SAT 97
[2021-02-23] MEDS: citalopram 20 mg Tablet 40 MG PO (09:24)
[2021-02-23] MEDS: multivitamin therapeutic Tablet 1 TAB PO (09:24)
[2021-02-23] MEDS: ibuprofen 800 mg tablet PO (09:25)
[2021-02-23] MEDS: hyDROXYzine 25 mg Capsule 50 MG PO ×2 (09:25→14:23)
[2021-02-23] MEDS: pantoprazole DR 40 mg Tablet PO (09:25)
[2021-02-23] MEDS: OLANZapine 5 mg TABLET 7.5 MG PO (09:26)
[2021-02-23] MEDS: estradiol 1 mg Tablet 1.5 MG PO (09:29)
[2021-02-23] MEDS: duloxetine 30 mg Capsule PO (09:32)
[2021-02-23 14:00] VITALS: BP 100/68; PULSE 73; RESP 16; TEMP 36.6; O2SAT 97
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
[2021-02-23 16:14] VITALS: BP 100/68; PULSE 73; RESP 16; TEMP 36.6; O2SAT 97
== END 2021-02-23 16:56 | disposition home or self-care (01) | DRG 897 ==
LOC: ER 14:50 → NP 16:23
PROVIDERS: Admitting Provider Psychiatry & Neurology Psychiatry; Emergency Provider Emergency Medicine; PCP Physician Assistant Medical; Visit Provider Psychiatry & Neurology Psychiatry
DX: F15.151 Other stimulant abuse with stimulant-induced psychotic disorder with hallucinations (principal); R45.851 Suicidal ideations; F43.10 Post-traumatic stress disorder, unspecified; F12.151 Cannabis abuse with psychotic disorder with hallucinations; F32.9 Major depressive disorder, single episode, unspecified; Z91.5 Personal history of self-harm; Z91.410 Personal history of adult physical and sexual abuse
CPT/HCPCS: 80048; 80306; 80307; 81025; 85025; 97165; 99285; J8499

== ENCOUNTER → 2022-02-26 08:40 | Outpatient (BNVA) | payer MEDICARE, MEDICAID, SELFPAY | PROVIDERS: Referring Provider Nurse Practitioner Family; Visit Provider Specialist | DX: G24.3 Spasmodic torticollis (principal); G43.711 Chronic migraine without aura, intractable, with status migrainosus; R20.2 Paresthesia of skin; R00.0 Tachycardia, unspecified; F41.9 Anxiety disorder, unspecified | CPT/HCPCS: 99204 ==

== ENCOUNTER 2022-04-07 11:13 | Emergency (ER) | payer MEDICARE, MEDICAID, SELFPAY ==
[2022-04-07] VITALS (11 sets, daily range): BP systolic 104–134; BP diastolic 71–106; PULSE 104–119; RESP 15–20; TEMP 36.8–37; O2SAT 95–100; BMI 27.4
--- NOTE | 2022-04-07 11:41 | W.ED.ABDPA2 ---
HPI - Abdominal Pain General: Chief Complaint: Abdominal Pain Stated Complaint: Back and side pain for 5 days Time Seen by Provider: 04/07/22 11:41 History of Present Illness: Ms. Arzate is a 41-year-old female with history of hysterectomy and cholecystectomy presenting to the emergency department due to left back and side pain. Onset of symptoms was atraumatic and subacute approximately 5 days ago. Since that time pain is radiated to the left upper quadrant, mild associated nausea secondary to pain but no other specific symptoms. Intensity symptoms is moderate to severe. Course is worsened. Worse with palpation and movement. Denies history of kidney stones or similar in the past. No other specific changes in health, exacerbating, or alleviating factors identified. Onset (ago): day(s) Pain Consistency: constant Location: Other Severity: severe Quality: cramping, stabbing and aching Radiation: LUQ Migration to: no migration Exacerbating factors: movement Relieving factors: nothing Associated Symptoms: Reports diarrhea and nausea; Denies dysuria and vomiting Review of Systems General: Reports: 10 or more systems reviewed and unremarkable except in HPI and below GI: Reports: nausea and diarrhea; Denies: vomiting : Denies: dysuria PFSH ED PFSH: Medical History Anxiety Depression Dystonia Fibromyalgia PTSD (post-traumatic stress disorder) Surgical History History of cholecystectomy History of hysterectomy Family History Other Cancer Stroke Social History Smoking and tobacco status: never smoked Physical Exam Const: COMMON NORMALS: alert GENERAL APPEARANCE: cooperative, well developed and in distress (Uncomfortable appearance due to pain) HENMT: COMMON NORMALS: normocephalic and atraumatic HEAD & SCALP: normocephalic and atraumatic THROAT: posterior oropharynx normal Eye: COMMON NORMALS: conjunctivae normal CONJUNCTIVA: Yes conjunctivae normal SCLERA: sclerae normal Neck/C-Spine: COMMON NORMALS: supple GENERAL: Yes trachea midline Resp: COMMON NORMALS: clear to auscultation bilaterally EFFORT & INSPECTION: Yes able to speak in complete sentences AUSCULTATION: clear to auscultation bilaterally Cardio: COMMON NORMALS: regular rate and regular rhythm RATE: regular rate RHYTHM: regular rhythm GI: COMMON NORMALS: Soft to palpation PALPATION: Yes Soft to palpation, Yes Tenderness to palpation present (GI) (Left flank, back, abdomen), No Guarding due to palpation present (GI) and No Rigid due to palpation Back/Pelvis: COMMON NORMALS: no thoracic nor lumbar tenderness Extremity: GENERAL: Yes normal exam except as noted and No edema Neuro: COMMON NORMALS: moves all extremities SENSORIUM/ORIENTATION: Yes alert and No Orientation impaired Psych: COMMON NORMALS: mental status grossly normal and Normal thought process present THOUGHT PROCESS: Normal thought process present Skin: NARRATIVE SKIN EXAM: No skin rashes over area of reported pain Course Vital Signs: Vital signs: Vital Signs Temperature 98.6 F 04/07/22 17:06 Pulse Rate 108 H 04/07/22 17:06 Respiratory Rate 18 04/07/22 17:06 Blood Pressure 104/80 04/07/22 17:06 Pulse Oximetry 97 04/07/22 17:06 Oxygen Delivery Me thod 04/07/22 16:30 MDM - Abdominal Pain Medical Decision Making 41-year-old lady presenting with abdominal/back/side symptoms. Patient is nontoxic in appearance though uncomfortable due to pain. Analgesia given. Multiple doses required during ED evaluation. No leukocytosis, normal hemoglobin. Metabolic panel with mild evidence of dehydration. No urinary tract infection. CT chest abdomen and pelvis without acute pathology to explain symptoms. Incidental findings discussed including need for repeat imaging for lung nodules. Upon reassessment patient only mildly improved and required multiple doses of medications however in the absence of acute pathology identified patient does not require inpatient management at this time. The results of ED evaluation were discussed with the patient including prescriptions and/or symptomatic cares (if applicable) including appropriate and responsible use, followup plan, and return precautions. The patient verbalized understanding and felt safe for discharge. Medical Records I reviewed the patient's medical records. Lab Data I reviewed the patient's lab results. : 04/07/22 12:10 04/07/22 12:10 Labs/Radiology: Radiology Impressions Chest/Abdomen/Pelvis CT 04/07/22 12:[address]: 1[address] evidence of pulmonary embolism. 2. Several pleural based left lower lobe nodular densities, measuring up to IMPRESSION: 1. No CT evidence of acute intra-abdominal or pelvic pathology. 2. Additional findings, as above. Laboratory Results WBC 9.9 10^3/uL (4.0-10.0) 04/07/22 12:10 RBC 5.25 10^6/uL (4.1-5.3) 04/07/22 12:10 Hgb 12.1 g/dL (11.5-15.3) 04/07/22 12:10 Hct 38.6 % (37.0-47.0) 04/07/22 12:10 MCV 73.5 fl (81-99) L 04/07/22 12:10 MCH 23.0 pg (28.0-34.0) L 04/07/22 12:10 MCHC 31.3 g/dL (30.0-36.0) 04/07/22 12:10 RDW 14.6 % (12.1-15.1) 04/07/22 12:10 Plt Count 328 10^3/cmm (130-400) 04/07/22 12:10 MPV 8.6 fL (7.4-10.4) 04/07/22 12:10 Neut % (Auto) 66.6 % 04/07/22 12:10 Lymph % (Auto) 24.5 % 04/07/22 12:10 [place] % (Auto) 6.4 % 04/07/22 12:10 Eos % (Auto) 1.4 % 04/07/22 12:10 Baso % (Auto) 0.8 % 04/07/22 12:10 Neut # (Auto) 6.61 10^3/uL (1.8-7.7) 04/07/22 12:10 Lymph # (Auto) 2.4 10^3/uL (0.8-4.8) 04/07/22 12:10 [place] # (Auto) 0.6 10^3/uL (0.2-0.9) 04/07/22 12:10 Eos # (Auto) 0.1 10^3/uL (0.0-0.8) 04/07/22 12:10 Baso # (Auto) 0.1 10^3/uL (0.0-0.1) 04/07/22 12:10 Nucleated RBC % (auto) 0 % 04/07/22 12:10 Nucleated RBCs # 0.0 /100WBC 04/07/22 12:10 Sodium 134 mmol/L (136-145) L 04/07/22 12:10 Potassium 4.1 mmol/L (3.5-5.1) 04/07/22 12:10 Chloride 100 mmol/L (98-107) 04/07/22 12:10 Carbon Dioxide 21 mmol/L (22-29) L 04/07/22 12:10 Anion Gap 17.1 (5-19) 04/07/22 12:10 BUN 8 mg/dL (6-20) 04/07/22 12:10 Creatinine 0.8 mg/dL (0.5-0.9) 04/07/22 12:10 GFR Calculation 78.7 mL/min (90-130) L 04/07/22 12:10 Glucose 117 mg/dL (65-115) H 04/07/22 12:10 Calculated Osmolality 277 mOsm/kg (285-295) L 04/07/22 12:10 Calcium 9.2 mg/dL (8.5-10.5) 04/07/22 12:10 Total Bilirubin 0.2 mg/dL (0.15-1.2) 04/07/22 12:10 AST 32 U/L (0-32) 04/07/22 12:10 ALT 27 U/L (0-33) 04/07/22 12:10 Alkaline Phosphatase 99 U/L (35-105) 04/07/22 12:10 Total Protein 7.8 g/dL (6.6-8.7) 04/07/22 12:10 Albumin 4.5 g/dL (3.5-5.2) 04/07/22 12:10 Globulin 3.3 g/dL (1.3-4.6) 04/07/22 12:10 Lipase 33 U/L (13-60) 04/07/22 12:10 HCG, Qual Negative (Negative) 04/07/22 12:00 Urine Color Yellow (Yellow) 04/07/22 12:00 Urine Appearance Clear (CLEAR) 04/07/22 12:00 Urine pH 5 (5-7) 04/07/22 12:00 Ur Specific [place] 1.015 (1.005-1.030) 04/07/22 12:00 Urine Protein Neg (Negative) 04/07/22 12:00 Urine Glucose (UA) Norm (Normal) 04/07/22 12:00 Urine Ketones 1+ (Negative) H 04/07/22 12:00 Urine Blood Neg (Negative) 04/07/22 12:00 Urine Nitrate Negative (Negative) 04/07/22 12:00 Urine Bilirubin Neg (Negative) 04/07/22 12:00 Urine Urobilinogen Norm mg/dL (Negative) 04/07/22 12:00 Ur Leukocyte Esterase Negative (Negative) 04/07/22 12:00 Discharge Plan Discharge Patient Disposition: Home Clinical Impression: Acute flank pain, Incidental pulmonary nodule, Dehydration, mild Condition: Stable Prescriptions: New ondansetron 4 mg tablet,disintegrating 4 mg PO Q8H PRN (Reason: nausea and vomiting) Qty: 15 0RF oxycodone 5 mg tablet 5 mg PO Q4H PRN (Reason: pain) Qty: 10 0RF methocarbamol 750 mg tablet 750 mg PO Q8H PRN (Reason: muscle pain) Qty: 10 0RF No Action estradiol 1 mg tablet 1.5 mg PO DAILY acetaminophen 500 mg Tablet 500 mg PO Q6H PRN (Reason: Pain) olanzapine 5 mg Tablet 7.5 mg PO DAILY 30 Days Qty: 45 1RF duloxetine 30 mg Capsule,Delayed Release(Dr/Ec) 30 mg PO 0900,2100 30 Days Qty: 60 1RF citalopram 40 mg tablet 40 mg PO DAILY 30 Days Qty: 30 1RF hydroxyzine HCl 50 mg tablet 50 mg PO TID 30 Days Qty: 90 1RF Discharge Orders: Discharge ED (Routine); Ordered 04/07/22 Ordered By: Moises Soni Referrals: Mouna Grier, [facility] [Primary Care Provider] - Discharge Diet: Usual diet Discharge Activity: Increase activity as tolerated Patient Instructions: Flank Pain (ED), Opioid Safety, Pain Management Activity Restrictions/Additional Instructions: Thank you for visiting the emergency department. You were seen evaluated for side pain. The exact cause of your symptoms is unclear though at this time does not appear to need hospitalization or further emergency department evaluation. Please follow-up with your primary care provider. Please continue to use [id number] medications for symptoms. Additionally I will prescribe prescription medications for symptoms, please use them cautiously. Incidentally you do have multiple pulmonary nodules which require repeat CT in 6 to 12 months to ensure that they are not increasing in size. Return to the emergency department for anything else that you are concerned about and feel needs emergency department evaluation. Coding Level of Care Code ED Motorized [employer] Captain for Elyssa Charles Exam Comprehensive
[2022-04-07] MEDS: diazePAM 2 mg Tablet PO (12:03)
[2022-04-07] MEDS: ketorolac 30 mg/mL INJ 15 MG IVP (12:12)
[2022-04-07] MEDS: sodium chloride 0.9% 1,000 ML 999 ML IV (12:13)
[2022-04-07] MEDS: ondansetron 2 mg/ML SDV 2 mL 4 MG IVP ×2 (12:14→16:11)
[2022-04-07] MEDS: morphine 4 mg/mL SDV 1 mL IVP (12:16)
[2022-04-07 12:28] LABS: Add Urine Microscopic? NO; Charge for UA Resulting for Rev
[2022-04-07 12:31] LABS: Basophils # 0.1 10^3/uL (0.0-0.1); Basophils % 0.8 %; Eosinophils # 0.1 10^3/uL (0.0-0.8); Eosinophils % 1.4 %; Hematocrit 38.6 % (37.0-47.0); Hemoglobin 12.1 g/dL (11.5-15.3); Lymphocytes # 2.4 10^3/uL (0.8-4.8); Lymphocytes % 24.5 %; Mean Corpuscular HGB Conc 31.3 g/dL (30.0-36.0); Mean Corpuscular Volume 73.5 fl (81-99); Mean Platelet Volume 8.6 fL (7.4-10.4); Monocytes # 0.6 10^3/uL (0.2-0.9); Monocytes % 6.4 %; Neutrophils # 6.61 10^3/uL (1.8-7.7); Neutrophils % 66.6 %; Nucleated Red Blood Cells % 0 %; Platelet Count 328 10^3/cmm (130-400); Red Blood Count 5.25 10^6/uL (4.1-5.3); Red Cell Distribution Width 14.6 % (12.1-15.1); White Blood Count 9.9 10^3/uL (4.0-10.0)
[2022-04-07 12:44] LABS: HCG Qualitative Urine. Negative (Negative)
[2022-04-07 12:45] LABS: Bilirubin Urine Neg (Negative); Blood Urine Neg (Negative); Glucose Urine UA Norm (Normal); Ketones Urine 1+ (Negative); Leukocyte Esterase Urine Negative (Negative); Nitrate Urine Negative (Negative); Protein Urine Neg (Negative); Specific Gravity, Urine 1.015 (1.005-1.030); Urine Appearance Clear (CLEAR); Urine Color Yellow (Yellow); Urobilinogen Urine Norm (Negative); pH Urine 5 (5-7)
[2022-04-07] MEDS: HYDROmorphone 1 mg/mL INJ 1 mL 0.5 MG IVP (12:50)
--- NOTE | 2022-04-07 12:51 | CTR_ITS ---
PROCEDURE INFORMATION: Exam: CTA Chest With Contrast Exam date and time: 04/07/2022 1:02 PM Age: 41 years old Clinical indication: Abdominal pain; Chest pressure; Additional info: L back/rib pain, luq pain, tachycardia TECHNIQUE: Imaging protocol: Computed tomographic angiography of the chest with contrast. Axial, coronal and sagittal reformatted images were created and reviewed. 3D rendering (Not supervised by radiologist): MIP and/or 3D reconstructed images were created by the technologist. Radiation optimization: All CT scans at this facility use at least one of these dose optimization techniques: automated exposure control; mA and/or kV adjustment per patient size (includes targeted exams where dose is matched to clinical indication); or iterative reconstruction. Contrast material: OMNIPAQUE 350; Contrast volume: 100 ml; Contrast route: INTRAVENOUS (IV); COMPARISON: No relevant prior studies available. RADIATION DOSE METRICS: Total DLP (mGy-cm): 916.58 FINDINGS: Pulmonary arteries: Contrast opacification satisfactory. No intraluminal filling defect. Aorta: Unremarkable. No aneurysm or dissection. Lungs: Unremarkable. No consolidation. No mass. Pleural spaces: Biapical pleural thickening. Trace left pleural effusion. No pneumothorax. Several pleural based left lower lobe nodular densities, measuring up to 4 mm. Heart: Unremarkable. No cardiomegaly. No pericardial effusion. Lymph nodes: Small mediastinal and hilar lymph nodes, nonspecific in appearance. No pathologically enlarged lymph nodes. Bones/joints: No acute osseous abnormality. Soft tissues: Unremarkable. 4 mm. Recommend follow-up CT Chest in 6-12 months. (References: Brian and Ángel) 3. Trace left pleural effusion. 4. Additional findings, as above. REFERENCES: 1. Brian H, et al. Guidelines for Management of Incidental Pulmonary Nodules Detected on CT Images: From the Fleischner Society 2017. Radiology. 2017;284(1):228-243. 2. Neal J, et al. Updated Fleischner Society Guidelines for Managing Incidental Pulmonary Nodules: Common Questions and Challenging Scenarios. Radiographics. 2018;38(5):2463-9829. PROCEDURE INFORMATION: Exam: CT Abdomen And Pelvis With Contrast Exam date and time: 04/07/2022 1:02 PM Age: 41 years old Clinical indication: Abdominal pain; Chest pressure; Additional info: L back/rib pain, luq pain, tachycardia TECHNIQUE: Imaging protocol: Computed tomography of the abdomen and pelvis with contrast. Axial, coronal and sagittal reformatted images were created and reviewed. Radiation optimization: All CT scans at this facility use at least one of these dose optimization techniques: automated exposure control; mA and/or kV adjustment per patient size (includes targeted exams where dose is matched to clinical indication); or iterative reconstruction. Contrast material: OMNIPAQUE 350; Contrast volume: 100 ml; Contrast route: INTRAVENOUS (IV); COMPARISON: No relevant prior studies available. RADIATION DOSE METRICS: Total DLP (mGy-cm): 916.58 FINDINGS: Liver: Mild hepatomegaly. Diffuse hepatic steatosis. Coarse calcified granuloma in the right hepatic lobe. Gallbladder and bile ducts: Status post cholecystectomy. No biliary ductal dilatation. Pancreas: Unremarkable. Spleen: Unremarkable. Adrenal glands: Normal. No mass. Kidneys and ureters: No mass. No radiodense calculi. No hydronephrosis. Stomach and bowel: No bowel wall thickening. No obstruction. No pneumatosis. Appendix: Normal. Intraperitoneal space: No free fluid. No organized fluid collection. No free air. Vasculature: Unremarkable. No aneurysm. Lymph nodes: No pathologically enlarged lymph nodes. Urinary bladder: Unremarkable as visualized. Reproductive: Status post hysterectomy. Bones/joints: No acute osseous abnormality. Soft tissues: Unremarkable. CT/CT angio chest w abd pel w con IMPRESSION: 1. No CT evidence of pulmonary embolism. 2. Several pleural based left lower lobe nodular densities, measuring up to IMPRESSION: 1. No CT evidence of acute intra-abdominal or pelvic pathology. 2. Additional findings, as above.
[2022-04-07 13:03] LABS: Alanine Aminotransferase 27 U/L (0-33); Albumin Level 4.5 g/dL (3.5-5.2); Alkaline Phosphatase 99 U/L (35-105); Anion Gap 17.1 (5-19); Aspartate Amino Transferase 32 U/L (0-32); Blood Urea Nitrogen 8 mg/dL (6-20); Calcium 9.2 mg/dL (8.5-10.5); Carbon Dioxide 21 mmol/L (22-29); Chloride 100 mmol/L (98-107); Globulin 3.3 g/dL (1.3-4.6); Glomerular Filtration Rate 78.7 mL/min (90-130); Glucose 117 mg/dL (65-115); Lipase 33 U/L (13-60); Osmolality Calculated 277 mOsm/kg (285-295); Potassium 4.1 mmol/L (3.5-5.1); Sodium 134 mmol/L (136-145); Total Bilirubin 0.2 mg/dL (0.15-1.2); Total Protein 7.8 g/dL (6.6-8.7)
[2022-04-07] MEDS: iohexol 350 mg/mL 100 mL Btl IV (13:12)
[2022-04-07] MEDS: HYDROmorphone 1 mg/mL INJ 1 mL IVP ×2 (13:18→16:10)
[2022-04-07] MEDS: diphenhydrAMINE 50 mg/mL SDV 1mL 12.5 MG IVP (14:25)
[2022-04-07] MEDS: dicyclomine 10 mg Capsule PO (14:26)
[2022-04-07] MEDS: chlorPROMazine 25 mg Tablet PO (14:35)
[2022-04-07] MEDS: acetaminophen 500 mg Tablet 1000 MG PO (15:20)
[2022-04-07] MEDS: lidocaine 5% Patch 1 PATCH TOPICAL (15:21)
[2022-04-07] MEDS: methocarbamol 750 mg Tablet PO (15:21)
== END 2022-04-07 17:09 | disposition home or self-care (01) ==
PROVIDERS: Emergency Provider Emergency Medicine; PCP Nurse Practitioner Family
DX: R10.9 Unspecified abdominal pain (principal); R91.1 Solitary pulmonary nodule; E86.0 Dehydration
CPT/HCPCS: 71275; 74177; 80053; 81003; 81025; 83690; 85025; 96361; 96374; 96375; 96376; 99285; J1170; J1200; J1885; J2270; J2405; J7030; Q0161; Q9967

== ENCOUNTER 2023-06-04 12:27 | Outpatient (CLI) | payer MEDICARE, MEDICAID, SELFPAY ==
--- NOTE | 2023-06-04 | ECG_ITS ---
[facility] Test Date: 2023-06-04 Pat Name: Reina Arzate Department: Room: Gender: Female Service Officer: : 1980 Requested By: Joel Finney Order Number: [id number] Kimberley MD: Edmundo Sykes M.D. Interpretive Statements NAME OF STUDY: TREADMILL STRESS TEST INDICATION: [Dyspnea on Exertion] EXERCISE DATA: The patient was exercised by Toney protocol. Baseline heart rate was 83 beats per minute. Baseline blood pressure was 99/81 millimeters of mercury. Target heart rate was 150 beats per minute. Maximum heart rate achieved was 160, which was 106% of the target heart rate. Maximum blood pressure was 166/76 millimeters of mercury. Total exercise time was 7 minutes and 24 seconds. Maximum METs achieved was 10.2. The reason for ending the test was target heart rate achieved. The patient complained of shortness of breath during the stress test, which then resolved at the end of the test. ELECTROCARDIOGRAM: BASELINE: Showed sinus rhythm, normal axis, no significant ST-T changes at the baseline noted. [] EXERCISE: At the peak exercise level, [] sinus tachycardia without significant ST-T wave changes seen. RECOVERY: During the recovery period, heart rate dropped appropriately. No significant ST-T changes in the recovery suggestive of ischemia noted. [] CONCLUSION: 1. Exercise capacity is good. 2. Heart rate response was appropriate 3. Blood pressure response was appropriate 4. Symptoms not suggestive of ischemia. 5. Stress test does not show ischemia Electronically Signed On 06-24-2023 16:11:05 [employer]PER[employer]OR [employer] by Edmundo Sykes M.D. [id number]
[2023-06-04 13:04] VITALS: BMI 23.8
[2023-06-04 13:42] VITALS: BP 123/84; PULSE 82
== END 2023-06-04 12:28 | disposition home or self-care (01) ==
LOC: CDL 12:30
PROVIDERS: PCP Family Medicine; Visit Provider Family Medicine
DX: R06.09 Other forms of dyspnea (principal)
CPT/HCPCS: 93017

== ENCOUNTER → 2023-07-17 15:00 | Outpatient (BNVA) | payer MEDICARE, MEDICAID, SELFPAY | PROVIDERS: PCP Family Medicine; Visit Provider Nurse Practitioner Women's Health | DX: Z98.890 Other specified postprocedural states (principal) | CPT/HCPCS: 87624 ==

== ENCOUNTER 2023-07-24 08:57 | Outpatient (CLI) | payer MEDICARE, MEDICAID, SELFPAY ==
--- NOTE | 2023-07-24 09:01 | MM_ITS ---
WS: [id number] Bilateral screening 3D tomosynthesis digital mammogram, 07/24/2023 Clinical Data: Z12.39 - Encounter for other screening for malignant neop... Comparison: None. Findings: The breast parenchymal pattern shows fibroglandular tissue. No spiculated masses or clustered calcifi cations are seen. There are no secondary signs of carcinoma. Impression: 1. Negative bilateral mammogram with no prior mammogram for review. 2. Recommend annual screening mammograms. MM/[place] [id number] BIRADS: 1-Negative FOLLOW UP: 1 Year Follow-up The CAD sample checker was used.
== END 2023-07-24 08:58 | disposition home or self-care (01) ==
LOC: RAD 08:57
PROVIDERS: PCP Family Medicine; Visit Provider Nurse Practitioner Women's Health
DX: Z12.31 Encounter for screening mammogram for malignant neoplasm of breast (principal)
CPT/HCPCS: 77063; 77067

== ENCOUNTER → 2023-08-26 14:03 | Outpatient (BNVA) | payer MEDICARE, MEDICAID, OTHER, SELFPAY | PROVIDERS: PCP Family Medicine; Visit Provider Nurse Practitioner Psychiatric/Mental Health | DX: Z79.899 Other long term (current) drug therapy (principal) | CPT/HCPCS: 80053; 80061; 80307; 83036 ==

== ENCOUNTER → 2024-02-06 11:30 | Outpatient (BNVA) | payer MEDICARE, MEDICAID, OTHER, SELFPAY ==
[2023-08-29 15:22] VITALS: BP 105/71
[2023-08-29 15:24] VITALS: BMI 21.8
== END ==
PROVIDERS: PCP Family Medicine; Visit Provider Nurse Practitioner Psychiatric/Mental Health
DX: Z79.899 Other long term (current) drug therapy (principal)
CPT/HCPCS: 80053

== ENCOUNTER → 2024-08-25 13:41 | Outpatient (BNVA) | payer MEDICARE, MEDICAID, OTHER, SELFPAY ==
[2023-08-29 15:22] VITALS: BP 105/71
[2023-08-29 15:24] VITALS: BMI 21.8
== END ==
PROVIDERS: PCP Family Medicine; Visit Provider Nurse Practitioner Psychiatric/Mental Health
DX: Z79.899 Other long term (current) drug therapy (principal)
CPT/HCPCS: 80053; 80061; 82306; 83036

== ENCOUNTER 2024-11-24 12:23 | Outpatient (CLI) | payer MEDICARE, MEDICAID, SELFPAY ==
[2024-08-26 09:42] VITALS: BP 99/71; BMI 22.1
--- NOTE | 2024-11-24 12:31 | MM_ITS ---
WS: [id number] BILATERAL 3D TOMOSYNTHESIS DIGITAL SCREENING MAMMOGRAPHY WITH CAD CLINICAL INFORMATION: SCREENING HISTORY: Screening mammogram. No current complaints. COMPARISON: 2023 TECHNIQUE: Bilateral CC and MLO views. FINDINGS: Scattered fibroglandular densities bilaterally. No suspicious focal mass, asymmetry, calcifications, or architectural distortion. No evidence of malignancy. MM/MM scr BI tomosynthesis [id number] IMPRESSION: DENSITY: There are scattered areas of fibroglandular density. BI-RADS: 1 - Negative. FOLLOW UP: 1 Year Follow-up Recommend return to annual screening mammography.
== END 2024-11-24 12:24 | disposition home or self-care (01) ==
PROVIDERS: PCP Family Medicine; Visit Provider Registered Nurse
DX: Z12.31 Encounter for screening mammogram for malignant neoplasm of breast (principal)
CPT/HCPCS: 77063; 77067